=== PATIENT | female | born 1985 | race African-American/Black ===

== ENCOUNTER 2018-08-03 03:51 | Emergency (ER) | payer MEDICAID, OTHER ==
[~2018-08-03] VITALS: Ht 167.6 cm; Wt 74.0 kg
[2018-08-03 05:02] LABS: BASOPHILS % 1.4 % (0.0-2.0); EOSINOPHILS % 5.5 % (0.0-5.0); HEMATOCRIT. 40.6 % (36.0-48.0); HEMOGLOBIN. 13.2 g/dL (12.0-16.0); LYMPHOCYTES % 42.5 % (20.0-50.0); MEAN CORPUSCULAR HEMOGLOBIN 27.5 pg (28.0-32.0); MEAN CORPUSCULAR VOLUME 84.5 fL (81.0-99.0); MEAN PLATELET VOLUME 10.1 fl (7.4-10.4); MONOCYTES % 11.5 % (2.0-8.0); NEUTROPHILS % 39.1 % (40.0-76.0); PLATELET 200 x1000/uL (130-400); RED BLOOD CELL COUNT 4.81 mill/uL (4.2-5.4); RED CELL DISTRIBUTION WIDTH 14.3 % (11.6-14.6)
[2018-08-03 05:06] LABS: CHLORIDE 108 mEq/L (98-107)
[2018-08-03 05:16] LABS: CLARITY URINE CLOUDY (CLEAR); COLOR URINE YELLOW (YELLOW); KETONES URINE NEGATIVE (NEGATIVE); LEUKOCYTE ESTERASE URINE 1+ (NEGATIVE); NITRITE URINE POSITIVE (NEGATIVE); OCCULT BLOOD URINE NEGATIVE (NEGATIVE); PH URINE 6.5 (4.5-8.0); PROTEIN URINE NEGATIVE (NEGATIVE); SPECIFIC GRAVITY URINE 1.021 (1.005-1.030)
[2018-08-03 05:16] LABS: PROTHROMBIN TIME 9.9 sec (9.6-11.0)
[2018-08-03 05:23] LABS: HCG SCREEN NEGATIVE
[2018-08-03 06:54] VITALS: BP 125/73
[2018-08-03] MEDS ORDERED: NITROFURANTOIN 100MG M/M CAPSULE PO ONE (07:00)
== END 2018-08-03 07:02 | disposition home or self-care (01) ==
LOC: ER 03:51
DX: N39.0 Urinary tract infection, site not specified (principal); R03.0 Elevated blood-pressure reading, without diagnosis of hypertension
CPT/HCPCS: 36415; 81025; 84703; 87077; 87186; 99283